=== PATIENT | female | born 1985 | race Caucasian/White ===

== ENCOUNTER 2019-02-01 17:36 | Emergency (ER) | payer MEDICAID ==
[~2019-02-01] VITALS: Ht 170.2 cm; Wt 91.4 kg
[2019-02-01 17:46] VITALS: BP 126/73
--- NOTE | 2019-02-01 19:18 | NUR ---
PT TAKEN TO BED 11
--- NOTE | 2019-02-01 20:00 | NUR ---
PT PRESENTS TO ED WITH COMPLAINT OF HEMORRHOIDS FOR THE PAST 4 DAYS. PT REPORTS HAVING INTERMITTENT BLOOD IN STOOL. PT STATES SHE HAS TRIED HEMORRHOID CREAM WITH NO IMPROVEMENT. PT C/O PAIN WITH SITTING DOWN. PT DENIES ACTIVE BLEEDING. AOX4.
--- NOTE | 2019-02-01 20:13 | NUR ---
Dr. Ramsey evaluating patient at bedside.
[2019-02-01 20:20] VITALS: BP 126/73
--- NOTE | 2019-02-01 20:20 | NUR ---
Patient discharged with v/s stable. Written and verbal after care instructions given and explained. Patient alert, oriented and verbalized understanding of instructions. Ambulatory with steady gait. All questions addressed prior to discharge. ID band removed. Patient advised to follow up with PMD. Rx of COLACE given. Patient educated on indication of medication including possible reaction and side effects. Opportunity to ask questions provided and answered.
== END 2019-02-01 20:20 | disposition home or self-care (01) ==
LOC: MED 17:36
DX: K64.9 Unspecified hemorrhoids (principal); F17.200 Nicotine dependence, unspecified, uncomplicated; Z88.0 Allergy status to penicillin; Z90.49 Acquired absence of other specified parts of digestive tract
CPT/HCPCS: 81002; 81025; 99282

== ENCOUNTER 2019-04-25 13:59 | Emergency (ER) | payer MEDICAID ==
[~2019-04-25] VITALS: Ht 167.6 cm; Wt 95.5 kg
[2019-04-25 14:20] VITALS: BP 114/68
--- NOTE | 2019-04-25 14:25 | NUR ---
Patient ambulated to bed 2. RN evaluating patient at bedside.
--- NOTE | 2019-04-25 14:30 | NUR ---
PT BIB SELF TO THE ED WITH THE CHIEF C/O ABDOMINAL PAIN AND VAGINAL BLEED FOR 2 HOURS. PT IS 7 WEEKS . NAUSEATED AT THIS TIME. VOMITED X2, DIARRHEA X3 TODAY. NO BLOOD IN VOMIT OR DIARRHEA. DENIES FEVER. DENIES OTHER PROBLEM. STATES PAIN OF 8/10 AT THIS TIME.
[2019-04-25] MEDS ORDERED: ONDANSETRON 4 MG/2 ML VIAL IVP ONE (14:50)
[2019-04-25] MEDS ORDERED: NACL 0.9% 1,000 ML IV ONE (14:50)
--- NOTE | 2019-04-25 15:26 | NUR ---
UNABLE TO START IV LINE AT THIS TIME. WILLIAM OLIVIER AWARE. DOCTOR SAID WILL DO PO MEDS. Addendum: 04/25/19 at 1613 by [email or web address] NO MORE IV POKE PER DOCTOR.
[2019-04-25 15:35] LABS: APPEARANCE,URINE HAZY (CLEAR); BILIRUBIN,URINE NEGATIVE (NEGATIVE); BLOOD, URINE NEGATIVE (NEGATIVE); COLOR,URINE YELLOW (YELLOW); LEUKOCYTE ESTERASE ,URINE TRACE (NEGATIVE); NITRITE, URINE NEGATIVE (NEGATIVE); PH,URINE 6.5 (5.0-9.0); UGLUCOSE NEGATIVE (NEGATIVE)
[2019-04-25 15:43] LABS: RBC,URINE 0-5 /HPF (0-5)
[2019-04-25 15:48] LABS: ANION GAP 14.3 (8-16); CARBON DIOXIDE 25.7 mmol/L (21-32); CREATININE 0.8 mg/dL (0.6-1.3)
[2019-04-25 15:56] LABS: ALBUMIN 3.5 g/dL (3.4-5.0); TOTAL BILIRUBIN 0.3 mg/dL (0.0-1.0)
--- NOTE | 2019-04-25 16:41 | NUR ---
REPORTS NAUSEATED. ER MD MADE AWARE.
[2019-04-25] MEDS ORDERED: ONDANSETRON 4 MG TAB PO ONE (16:45)
[2019-04-25 16:53] VITALS: BP 101/50
--- NOTE | 2019-04-25 16:53 | NUR ---
Patient discharged with v/s stable. Written and verbal after care instructions given and explained. Patient alert, oriented and verbalized understanding of instructions. Ambulatory with steady gait. All questions addressed prior to discharge. ID band removed. Patient advised to follow up with PMD. Rx of AMPICILLIN 500 MG given. Patient educated on indication of medication including possible reaction and side effects. Opportunity to ask questions provided and answered. Discharged by ER MD.
== END 2019-04-25 16:53 | disposition home or self-care (01) ==
LOC: MED 13:59
DX: O23.41 Unspecified infection of urinary tract in pregnancy, first trimester (principal); O21.9 Vomiting of pregnancy, unspecified; Z3A.01 Less than 8 weeks gestation of pregnancy; Z90.49 Acquired absence of other specified parts of digestive tract; Z88.0 Allergy status to penicillin
CPT/HCPCS: 36415; 76801; 80053; 81001; 81025; 84702; 87086; 99284; J2405; Q0092; Q0162

== ENCOUNTER 2021-09-11 17:24 | Emergency (ER) | payer MEDICAID ==
[~2021-09-11] VITALS: Ht 170.2 cm; Wt 99.1 kg
[2021-09-11 17:36] VITALS: BP 152/105
[2021-09-11] MEDS ORDERED: DOPPLER MC ONE (17:50)
--- NOTE | 2021-09-11 17:50 | NUR ---
DR CAAL AT BEDSIDE.
[2021-09-11] MEDS ORDERED: ACETAMINOPHEN EXTRA STRENGTH 500 MG TAB PO ONE (18:00)
--- NOTE | 2021-09-11 18:00 | NUR ---
BEDSIDE DOPLER WAS DONE .
--- NOTE | 2021-09-11 18:05 | NUR ---
PT SENT TO XRAY VIA BED WITH [employer] AAOX4 AT THIS TIME
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
--- NOTE | 2021-09-11 18:06 | NUR ---
X-RAY AT BEDSIDE.
--- NOTE | 2021-09-11 18:17 | NUR ---
X-RAY AT BEDSIDE.
[2021-09-11 18:45] VITALS: BP 157/86
--- NOTE | 2021-09-11 19:13 | NUR ---
REPORT GIVEN TO ROBERT STEVE.
[2021-09-11] MEDS ORDERED: MORPHINE SULFATE 4 MG/ML SYR IM ONE (19:20)
--- NOTE | 2021-09-11 19:30 | NUR ---
RECEIVED REPORT FORM RN DAYSHIFT NURSE. PT SITTING UP IN BED RESTING. LEFT ARM HAS VISIBAL LARGE ELEVATED BRUISE. PT GIVEN ORDERED 4MG MORPHINE IM SHOT TO THE RIGHT DELTOID. ARM IS BEING SPLINTED AT BEDSIDE.
[2021-09-11] MEDS ORDERED: ACET-8386 PO (19:44)
[2021-09-11] MEDS ORDERED: NITR100C7 PO (19:44)
--- NOTE | 2021-09-11 19:45 | NUR ---
SLINT EXAMINED BY SAVANNAH AND APPROVED OF SPLINT APPLICATION
--- NOTE | 2021-09-11 20:00 | NUR ---
PT DISCHARGED TO HOME WEARING A SPLINT ON THE LEFT ARM. PT LEFT WITH DISCHARGE PAPERS, CD AND SCRIPTS FOR UTI AND PAIN. IN HAND. SHE VERBLEIZED UNDERSTANDING OF DISCHARGE INSTRUCTIONS.
== END 2021-09-11 20:00 | disposition home or self-care (01) ==
LOC: MED 17:24
DX: O9A.212 Injury, poisoning and certain other consequences of external causes complicating pregnancy, second trimester (principal); S52.602A Unspecified fracture of lower end of left ulna, initial encounter for closed fracture; O23.42 Unspecified infection of urinary tract in pregnancy, second trimester; Z3A.20 20 weeks gestation of pregnancy; Z98.890 Other specified postprocedural states; Z88.0 Allergy status to penicillin; W21.19XA Struck by other bat, racquet or club, initial encounter; Y93.89 Activity, other specified; Y92.89 Other specified places as the place of occurrence of the external cause; Y99.8 Other external cause status
CPT/HCPCS: 29105; 73090; 81002; 96372; 99283; J2270; Q0092